=== PATIENT | female | born 2000 | race Caucasian/White ===

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

== ENCOUNTER → 2021-01-20 16:42 | Outpatient (CLI) | payer OTHER, SELFPAY ==
[2021-01-20 16:54] LABS: Adenovirus F 40/41, stool Not Detected (NotDetected); Astrovirus Not Detected (NotDetected); Campylobacter Not Detected (NotDetected); Cryptosporidium Not Detected (NotDetected); Cyclospora Cayetanesis Not Detected (NotDetected); Entamoeba histolytica Not Detected (NotDetected); Enteroaggregative E coli Not Detected (NotDetected); Enterotoxigenic E coli Not Detected (NotDetected); Giardia lamblia Not Detected (NotDetected); Norovirus Not Detected (NotDetected); Plesimonas Shigalloides, PCR Not Detected (NotDetected); Rotavirus A Not Detected (NotDetected); Salmonella, PCR Not Detected (NotDetected); Sapovirus Not Detected (NotDetected); Shiga-like toxin E coli Not Detected (NotDetected); Shigella Enterovasive E coli Not Detected (NotDetected); Vibrio Cholerae Not Detected (NotDetected); Vibrio, PCR Not Detected (NotDetected); Yersinia Entercolitica, PCR Not Detected (NotDetected)
[2021-01-20 17:29] LABS: Basophils # 0.1 K/mm3 (0-0.2); Basophils % 1.7 % (0.1-2.0); Eosinophils # 0.1 K/mm3 (0.0-0.4); Hematocrit 41.4 % (37.0-47.0); Hemoglobin 13.6 g/dL (12.2-16.2); Lymphocytes # 2.1 K/mm3 (0.7-4.5); Lymphocytes % 36.3 % (10-50); Mean Corpuscular HGB Conc 32.9 g/dL (31.8-35.4); Mean Corpuscular Hemoglobin 30.5 pg (27.0-31.2); Mean Corpuscular Volume 92.7 fl (81-99); Mean Platelet Volume 7.6 fl (7.4-10.4); Monocytes # 0.4 K/mm3 (0.1-1.0); Monocytes % 6.9 % (1.7-9.3); Neutrophils % 53.1 % (37.0-80.0); Platelet Count 376 K/mm3 (142-424); Red Blood Count 4.46 M/mm3 (4.20-5.40); Red Cell Distribution Width 11.9 % (11.5-17.5); White Blood Count 5.7 K/mm3 (4.5-13.0)
[2021-01-20 19:40] LABS: Alanine Aminotransferase 15 U/L (12-78); Albumin Level 4.5 g/dl (3.5-5.0); Albumin/Globulin Ratio 1.4 (1.1-1.8); Alkaline Phosphatase 67 U/L (38-126); Anion Gap 17.4 mEq/L (5-15); Aspartate Amino Transferase 23 U/L (14-36); Bilirubin,Total 0.3 mg/dl (0.2-1.3); Blood Urea Nitrogen 9 mg/dl (7-17); Calcium 9.5 mg/dl (8.4-10.2); Carbon Dioxide 24 mmol/L (22.0-30.0); Chloride 105 mmol/L (98-107); Estimated Glomerular Filt Rate 108 ml/min (>60); GFR (African American) 130 ML/MIN (>60); Globulin 3.3 g/dL (1.3-3.2); Glucose 86 mg/dl (74-100); Potassium 4.4 mmoL/L (3.5-5.1); Sodium 142 mmol/L (136-145); Total Protein,Serum 7.8 g/dl (6.3-8.2)
[2021-01-21 09:05] LABS: Clostridium Difficile A/B, PCR Detected (NotDetected); Enteropathogenic E coli Detected (NotDetected)
== END ==
PROVIDERS: Visit Provider Internal Medicine Adolescent Medicine
DX: R10.30 Lower abdominal pain, unspecified (principal); A04.72 Enterocolitis due to Clostridium difficile, not specified as recurrent; A04.0 Enteropathogenic Escherichia coli infection
CPT/HCPCS: 36415; 80053; 85025; 87507

== ENCOUNTER 2021-03-14 21:36 | Emergency (ER) | payer OTHER, SELFPAY ==
[2021-03-14 21:45] VITALS: BP 118/71; PULSE 96; RESP 17; TEMP 36.8; O2SAT 98; BMI 19.6
--- NOTE | 2021-03-14 22:03 | CT_ITS ---
PROCEDURE INFORMATION: Exam: CT Abdomen And Pelvis With Contrast Exam date and time: 03/14/2021 10:03 PM Age: 20 years old Clinical indication: Abdominal pain; Epigastric; Prior surgery; Surgery date: 6+ months; Surgery type: Past HX of pancreatic stents. Pancreas biopsy in past; Additional info: Abd pain TECHNIQUE: Imaging protocol: Computed tomography of the abdomen and pelvis with contrast. Radiation optimization: All CT scans at this facility use at least one of these dose optimization techniques: automated exposure control; mA and/or kV adjustment per patient size (includes targeted exams where dose is matched to clinical indication); or iterative reconstruction. Contrast material: ISOVUE; Contrast volume: 75 ml; Contrast route: IV; COMPARISON: ABDPELW CT abdomen pelvis w con 08/21/2018 7:28 AM FINDINGS: Lungs: There is a small amorphous density in the anterior left lower lobe measuring 1.3 by 0.9 by 0.8 cm. This shows a small subtle focus of increased density which may reflect some calcification. Overall, this is not dramatically changed suggesting benign process. The visualized lung bases are otherwise clear. Heart: The visualized portions of the heart are unremarkable. Liver: There is diffuse decrease in hepatic parenchymal density consistent with fatty infiltration. Gallbladder and bile ducts: The gallbladder is normal. Pancreas: Previously described cystic lesion within the pancreatic tail have increased, previously measuring 2.6 x 1.7 x 1.7 cm, currently measuring 4.8 by 2.9 by 2.9 cm. The remainder of the pancreas is within range of normal. No evidence of acute pancreatitis. Spleen: The spleen is normal. Adrenal glands: The adrenal glands are normal. Kidneys and ureters: The kidneys are normal. Stomach and bowel: The colon is normal. Unopacified loops of small bowel within range of normal. The stomach appears normal. The duodenum appears normal. Appendix: No evidence of appendicitis. Intraperitoneal space: There is no evidence of free intraperitoneal or pelvic fluid. No evidence of intraperitoneal free air. Vasculature: There is no evidence of an aortic aneurysm. Lymph nodes: No enlarged lymph nodes. Urinary bladder: The bladder is normal. Reproductive: The uterus is normal. The left ovary is normal. The right ovary is normal. Bones/joints: Small focus of sclerosis involving the right ilium measuring 7.5 mm is likely a benign enostosis. There is no evidence of acute fracture. Soft tissues: Unremarkable. IMPRESSION: 1. Previously described cystic lesion within the pancreatic tail as increased, previously measuring 2.6 x 1.7 x 1.7 cm, currently measuring 4.8 by 2.9 by 2.9 cm. The remainder of the pancreas is within range of normal. Differential diagnostic considerations include but are not limited to, pancreas pseudocyst and cystic neoplasm. 2. Fatty hepatic infiltration.
[2021-03-14 22:05] LABS: Basophils # 0.1 K/mm3 (0-0.2); Basophils % 1.2 % (0.1-2.0); Eosinophils # 0.2 K/mm3 (0.0-0.4); Eosinophils % 1.7 % (0.1-12.0); Hematocrit 42.3 % (37.0-47.0); Hemoglobin 13.7 g/dL (12.2-16.2); Lymphocytes # 2.6 K/mm3 (0.7-4.5); Lymphocytes % 27.4 % (10-50); Mean Corpuscular HGB Conc 32.4 g/dL (31.8-35.4); Mean Corpuscular Hemoglobin 30.2 pg (27.0-31.2); Monocytes # 0.7 K/mm3 (0.1-1.0); Monocytes % 7.5 % (1.7-9.3); Neutrophils % 62.1 % (37.0-80.0); Platelet Count 339 K/mm3 (142-424); Red Blood Count 4.55 M/mm3 (4.20-5.40); Red Cell Distribution Width 12.6 % (11.5-17.5); White Blood Count 9.6 K/mm3 (4.5-13.0)
[2021-03-14 22:10] LABS: Microscopic, Urine URINE MICROSCOPIC (MICROSCOPIC)
[2021-03-14 22:12] LABS: Alanine Aminotransferase 14 U/L (12-78); Albumin Level 4.5 g/dl (3.5-5.0); Albumin/Globulin Ratio 1.3 (1.1-1.8); Alkaline Phosphatase 65 U/L (38-126); Amylase 85 U/L (30-110); Anion Gap 14.7 mEq/L (5-15); Aspartate Amino Transferase 24 U/L (14-36); Bilirubin,Total 0.5 mg/dl (0.2-1.3); Blood Urea Nitrogen 10 mg/dl (7-17); Calcium 9.5 mg/dl (8.4-10.2); Carbon Dioxide 24 mmol/L (22.0-30.0); Chloride 107 mmol/L (98-107); Creatinine Clearance Estimated 96 mL/min (50-200); Estimated Glomerular Filt Rate 108 ml/min (>60); GFR (African American) 130 ML/MIN (>60); Globulin 3.4 g/dL (1.3-3.2); Glucose 96 mg/dl (74-100); Lipase 160 U/L (23-300); Potassium 3.7 mmoL/L (3.5-5.1); Sodium 142 mmol/L (136-145); Total Protein,Serum 7.9 g/dl (6.3-8.2)
[2021-03-14 22:14] LABS: Appearance,Urine CLOUDY (Clear); Bilirubin,Urine Negative (Negative); Blood, Urine 3+ (Negative); Color,Urine YELLOW (Yellow); Glucose,Urine (UA) Negative (Negative); Ketones,Urine Negative (Negative); Leukocyte Esterase,Urine Negative (Negative); Nitrate,Urine Negative (Negative); Protein,Urine Negative (Negative); Specific Gravity, Urine >= 1.030 (1.005-1.030); Urobilinogen,Urine 0.2 EU/dl (0.2)
[2021-03-14 22:16] LABS: Urine Pregnancy, HCG Qual. Negative (Negative)
[2021-03-14 22:18] LABS: Amorphous Sediment,Urine Trace /lpf; Squamous Epithelial Cell,Urine 20-50 #/hpf (0-5); WBC,Urine Occasional #/hpf (0-3)
--- NOTE | 2021-03-14 22:19 | PC.NURSE ---
pt consumed all of contrast
--- NOTE | 2021-03-14 22:19 | PC.NURSE ---
rad notified of contrast time
[2021-03-14 22:31] LABS: Procalcitonin 0.048 ng/mL (0.0-2.0)
[2021-03-14 22:32] LABS: Erythrocyte Sedimentation Rate 18 mm/hr (0-20)
--- NOTE | 2021-03-14 22:45 | PC.NURSE ---
UPDATED MOTHER WITH PT PERMISSION ON STATUS OF BLOOD AND MEDS.
[2021-03-14 23:00] VITALS: BP 104/68; PULSE 87; O2SAT 98
--- NOTE | 2021-03-14 23:45 | PC.NURSE ---
UPDATED MOTHER PT GONE TO CT.
[2021-03-15] VITALS: BP 103/67; PULSE 71; RESP 16; O2SAT 96
--- NOTE | 2021-03-15 00:26 | PC.NURSE ---
RESULTS OF CT TO MD AT THIS TIME.
[2021-03-15 00:35] LABS: Adenovirus F 40/41, stool Not Detected (NotDetected); Astrovirus Not Detected (NotDetected); Campylobacter Not Detected (NotDetected); Cryptosporidium Not Detected (NotDetected); Cyclospora Cayetanesis Not Detected (NotDetected); Entamoeba histolytica Not Detected (NotDetected); Enteroaggregative E coli Not Detected (NotDetected); Enterotoxigenic E coli Not Detected (NotDetected); Giardia lamblia Not Detected (NotDetected); Norovirus Not Detected (NotDetected); Plesimonas Shigalloides, PCR Not Detected (NotDetected); Rotavirus A Not Detected (NotDetected); Salmonella, PCR Not Detected (NotDetected); Sapovirus Not Detected (NotDetected); Shiga-like toxin E coli Not Detected (NotDetected); Shigella Enterovasive E coli Not Detected (NotDetected); Vibrio Cholerae Not Detected (NotDetected); Vibrio, PCR Not Detected (NotDetected); Yersinia Entercolitica, PCR Not Detected (NotDetected)
--- NOTE | 2021-03-15 00:36 | HMH.EDNVD ---
ED Disposition Clinical Impression: Pancreatic pseudocyst Disposition: Home, Self-Care Condition on Discharge: Good Instructions: DI for Acute Abdominal Pain Additional Instructions: see pcp for follow up and her gi doctor Referrals: Fernando Yeboah MD [Primary Care Provider] - - Critical Care Critical Care Time: No Attestation: On 03/14/21, the high probability of a clinically significant, sudden or life threatening deterioration of the following system(s) required my full and direct attention, intervention and personal management. The time I documented below is in addition to time spent performing reported procedures but includes the following listed in this critical care notation. Medical Decision Making - Medical Records Medical records reviewed: Yes: I reviewed the patient's medical records. - Stevo Inquiry Pt receiving controlled substance: No Vital Signs: 03/14/21 21:45 Temperature 98.2 F Temperature Source Oral Pulse Rate [Right Brachial] 96 H Respiratory Rate 17 Blood Pressure [Right Arm] 118/71 Blood Pressure Mean [Right Arm] 86 Blood Pressure Source [Right Arm] Automatic Cuff Blood Pressure Position [Right Arm] Sitting 02 Sat by Pulse Oximetry 98 Oxygen Delivery Method Room Air - Lab Data Lab results reviewed: Yes: I reviewed the patient's lab results. Lab Results 03/14/21 21:47: WBC 9.6, RBC 4.55, Hgb 13.7, Hct 42.3, MCV 93.0, MCH 30.2, MCHC 32.4, RDW 12.6, Plt Count 339, MPV 9.0, Neut % (Auto) 62.1, Lymph % (Auto) 27.4, [place] % (Auto) 7.5, Eos % (Auto) 1.7, Baso % (Auto) 1.2, Neut # (Auto) 6.0, Lymph # (Auto) 2.6, [place] # (Auto) 0.7, Eos # (Auto) 0.2, Baso # (Auto) 0.1 03/14/21 21:47: Sodium 142, Potassium 3.7, Chloride 107, Carbon Dioxide 24, Anion Gap 14.7, BUN 10, Creatinine 0.70, Estimated Creat Clear 96, Estimated GFR 108, Est GFR ( Amer) 130, Glucose 96, Calcium 9.5, Total Bilirubin 0.5, AST 24, ALT 14, Alkaline Phosphatase 65, C-Reactive Protein 4.0, Total Protein 7.9, Albumin 4.5, Globulin 3.4 H, Albumin/Globulin Ratio 1.3, Amylase 85, Lipase 160 03/14/21 21:47: ESR 18 03/14/21 21:47: Procalcitonin 0.048 03/14/21 22:07: Urine HCG, Qual Negative 03/14/21 22:07: Urine Color Yellow, Urine Appearance Cloudy, Urine pH 6.0, Ur Specific [place] >= 1.030, Urine Protein Negative, Urine Glucose (UA) Negative, Urine Ketones Negative, Urine Blood 3+, Urine Nitrate Negative, Urine Bilirubin Negative, Urine Urobilinogen 0.2, Ur Leukocyte Esterase Negative, Urine RBC 5-10, Urine WBC Occasional, Ur Squamous Epith Cells 20-50, Amorphous Sediment Trace Result diagrams: 03/14/21 21:47 03/14/21 21:47 Orders (Tests/Meds): ED MEDICATIONS Generic Name Dose Route Start Last Admin Trade Name Freq PRN Reason Stop Dose Admin Sodium Chloride 1,000 mls @ 999 mls/hr 03/14/21 22:30 03/14/21 22:32 Sod Chlor 0.9% 1000ml Bag IV 03/14/21 23:30 999 mls/hr .Q1H1M JALEEL Administration Sodium Chloride 8 ml 03/14/21 22:21 Sodium Chloride 0.9% 10ml Vial IV 04/13/21 22:20 NEEDED PRN dilute pepcid Discontinued Medications Generic Name Dose Route Start Last Admin Trade Name Freq PRN Reason Stop Dose Admin Diatrizoate Meglum/Diatrizoate Sod 30 ml 03/14/21 21:57 03/14/21 22:18 Diatrizoate Hortencia 66% & Diatrizoate Na 10% 30ml Udc PO 03/14/21 21:58 30 ml ONCE ONE Administration Famotidine 20 mg 03/14/21 22:21 03/14/21 22:31 Famotidine 20mg/2ml Vial IV 03/14/21 22:22 20 mg ONCE ONE Administration Iopamidol 75 ml 03/14/21 23:41 03/14/21 23:42 Iopamidol-370 (76%);100ml Bottle IV 03/14/21 23:42 75 ml ONCE ONE Administration Ketorolac Tromethamine 30 mg 03/14/21 22:18 03/14/21 22:31 Ketorolac 30mg/Ml Vial IV 03/14/21 22:19 30 mg ONCE ONE Administration Metoclopramide HCl 10 mg 03/14/21 22:21 03/14/21 22:31 Metoclopramide Hcl 10mg/2ml Vial IVP 03/14/21 22:22 10 mg ONCE ONE Administration Ondansetron HCl 4 mg 03/14/21 22:1
[2021-03-15 00:49] VITALS: BP 113/75; PULSE 73; RESP 17; TEMP 36.7; O2SAT 98
[2021-03-15 02:27] LABS: Clostridium Difficile A/B, PCR Detected (NotDetected)
[2021-03-15 02:28] LABS: Enteropathogenic E coli Detected (NotDetected)
== END 2021-03-15 00:52 | disposition home or self-care (01) ==
PROVIDERS: Emergency Provider Emergency Medicine; PCP Internal Medicine Adolescent Medicine
DX: K86.3 Pseudocyst of pancreas (principal)
CPT/HCPCS: 74177; 80053; 81001; 81025; 82150; 83690; 84145; 85025; 85651; 86140; 87506; 96365; 96375; 99283; J2405; Q9967